=== PATIENT | male | born 1970 | race Caucasian/White ===

== ENCOUNTER 2020-11-14 08:31 | Observation (INO) | payer BC ==
--- NOTE | 2020-11-14 09:15 | ED ---
General Adult HPI - General Chief complaint: Syncope Stated complaint: syncope Time Seen by Provider: 11/14/20 08:36 Source: EMS Mode of arrival: EMS Limitations: no limitations - History of Present Illness Initial comments: Dictation was produced using [employer] dictation software. please excuse any grammatical, word or spelling errors. This patient was cared for during a federal and state declared state of emergency secondary to Covid 19 Chief Complaint: 50-year-old male presents after episode of syncope. History of Present Illness: She 50-year-old male he has no medical problems. Takes no medications on a regular basis. Patient states he was feeling fine last night. This morning he woke up to help his daughter who had a meeting. He check on the I after waking up at 745. He went upstairs plan HE IS ADVISED. HIS NEXT RECOLLECTION WAS WHEN EMS ARRIVED. Patient states he had a similar episode several months ago in [employer]. He did not seek medical attention at that time. States that after that episode he was diagnosed with influenza. Patient states he feels well at the moment except for some mild generalized body weakness. He has no other complaints at this time.Syncopal episode was unwitnessed however upon EMS arrival they did report that he seemed confused and possibly postictal. The ROS documented in this emergency department record has been reviewed and confirmed by me. Those systems with pertinent positive or negative responses have been documented in the HPI. All other systems are other negative and/or noncontributory. PHYSICAL EXAM: General Impression: Alert and oriented x3, not in acute distress HEENT: Normocephalic atraumatic, extra-ocular movements intact, pupils equal and reactive to light bilaterally, mucous membranes moist. Cardiovascular: Heart regular rate and rhythm Chest: Able to complete full sentences, no retractions, no tachypnea Abdomen: abdomen soft, non-tender, non-distended, no organomegaly Musculoskeletal: Pulses present and equal in all extremities, no peripheral edema Motor: no focal deficits noted Neurological: CN II-XII grossly intact, no focal motor or sensory deficits noted Skin: Intact with no visualized rashes Psych: Normal affect and mood ED course: 50-year-old male presents after syncopal episode. Signs upon arrival are within acceptable limits. There is some concern of seizure given that EMS reports postictal state. Laboratory evaluation obtained. Labs are unremarkable. Influenza RSV and SARS, coronavirus negative. Chest x-ray is nonacute. Computed tomography scan of brain is negative. Patient reevaluated bedside. Disposition options were discussed. is not bedside reports that patient did appear to be postictal after syncopal episode. There is concern of new onset seizure. Patient agreeable for admission with consultation to neurology. Case discussed Dr. Pak who is agreeable to patient's care. Neurology will be consulted. EKG interpretation: Ventricular rate 62, normal sinus rhythm,. Interval 132, QRS 90, QTc 444 no signs of prolonged QT, Brugada, HOCM, ARVD or WPW. No CT prolongation, no QTC prolongation, no ST or T-wave changes noted. s. Overall, this EKG is unremarkable Review of Systems ROS Statement: Those systems with pertinent positive or pertinent negative responses have been documented in the HPI. ROS Other: All systems not noted in ROS Statement are negative. Past Medical History Past Medical History: No Reported History Additional Past Medical History / Comment(s): Heart mumur at age 14 History of Any Multi-Drug Resistant Organisms: None Reported Past Surgical History: No Surgical Hx Reported Past Psychological History: No Psychological Hx Reported Smoking Status: Never smoker Past Alcohol Use History: Occasional Past Drug Use History: None Reported General Exam Limitations: no limitations Course Vital Signs 11/14/20 08:32 Temperature 97.7 F Pulse Rate 60 Respiratory 18 Rate Blood Pressure 139/86 O2 Sat by Pulse 100 Oximetry Medical Decision Making - Lab Data Result diagrams: 11/14/20 09:05 11/14/20 09:05 Lab Results 11/14/20 11/14/20 11/14/20 Range/Units 09:05 09:05 09:05 WBC 6.2 (3.8-10.6) k/uL RBC 4.95 (4.30-5.90) m/uL Hgb 14.7 (13.0-17.5) gm/dL Hct 44.7 (39.0-53.0) % MCV 90.2 (80.0-100.0) fL MCH 29.6 (25.0-35.0) pg MCHC 32.8 (31.0-37.0) g/dL RDW 13.0 (11.5-15.5) % Plt Count 186 (150-450) k/uL MPV 7.4 Neutrophils % 52 % Lymphocytes % 37 % Monocytes % 6 % Eosinophils % 2 % Basophils % 1 % Neutrophils # 3.2 (1.3-7.7) k/uL Lymphocytes # 2.3 (1.0-4.8) k/uL Monocytes # 0.4 (0-1.0) k/uL Eosinophils # 0.1 (0-0.7) k/uL Basophils # 0.0 (0-0.2) k/uL PT 10.1 (9.0-12.0) sec INR 1.0 (<1.2) APTT 21.7 L (22.0-30.0) sec Sodium 139 (137-145) mmol/L Potassium 4.2 (3.5-5.1) mmol/L Chloride 107 (98-107) mmol/L Carbon Dioxide 26 (22-30) mmol/L Anion Gap 6 mmol/L BUN 16 (9-20) mg/dL Creatinine 1.08 (0.66-1.25) mg/dL Est GFR (CKD-EPI)AfAm >90 (>60 ml/min/1.73 sqM) Est GFR (CKD-EPI)NonAf 79 (>60 ml/min/1.73 sqM) Glucose 104 H (74-99) mg/dL Calcium 8.4 (8.4-10.2) mg/dL Magnesium 1.9 (1.6-2.3) mg/dL Total Bilirubin 0.5 (0.2-1.3) mg/dL AST 21 (17-59) U/L ALT 28 (4-49) U/L Alkaline Phosphatase 39 (38-126) U/L Total Protein 6.4 (6.3-8.2) g/dL Albumin 4.0 (3.5-5.0) g/dL Influenza Type A (PCR) (Not Detectd) Influenza Type B (PCR) (Not Detectd) RSV (PCR) (Not Detectd) SARS-CoV-2 (PCR) (Not Detectd) 11/14/20 Range/Units 09:19 WBC (3.8-10.6) k/uL RBC (4.30-5.90) m/uL Hgb (13.0-17.5) gm/dL Hct (39.0-53.0) % MCV (80.0-100.0) fL MCH (25.0-35.0) pg MCHC (31.0-37.0) g/dL RDW (11.5-15.5) % Plt Count (150-450) k/uL MPV Neutrophils % % Lymphocytes % % Monocytes % % Eosinophils % % Basophils % % Neutrophils # (1.3-7.7) k/uL Lymphocytes # (1.0-4.8) k/uL Monocytes # (0-1.0) k/uL Eosinophils # (0-0.7) k/uL Basophils # (0-0.2) k/uL PT (9.0-12.0) sec INR (<1.2) APTT (22.0-30.0) sec Sodium (137-145) mmol/L Potassium (3.5-5.1) mmol/L Chloride (98-107) mmol/L Carbon Dioxide (22-30) mmol/L Anion Gap mmol/L BUN (9-20) mg/dL Creatinine (0.66-1.25) mg/dL Est GFR (CKD-EPI)AfAm (>60 ml/min/1.73 sqM) Est GFR (CKD-EPI)NonAf (>60 ml/min/1.73 sqM) Glucose (74-99) mg/dL Calcium (8.4-10.2) mg/dL Magnesium (1.6-2.3) mg/dL Total Bilirubin (0.2-1.3) mg/dL AST (17-59) U/L ALT (4-49) U/L Alkaline Phosphatase (38-126) U/L Total Protein (6.3-8.2) g/dL Albumin (3.5-5.0) g/dL Influenza Type A (PCR) Not Detected (Not Detectd) Influenza Type B (PCR) Not Detected (Not Detectd) RSV (PCR) Not Detected (Not Detectd) SARS-CoV-2 (PCR) Not Detected (Not Detectd) Disposition Clinical Impression: Seizure Disposition: ADMITTED IP TO THIS [facility] Condition: Fair Referrals: Jesus Puckett MD [Primary Care Provider] - 1-2 days Decision Time: 10:57
--- NOTE | 2020-11-14 09:18 | CT ---
EXAMINATION TYPE: CT brain wo con DATE OF EXAM: 11/14/2020 COMPARISON: 11/14/2020 HISTORY: 50-year-old male seizure TECHNIQUE: Examination was done in axial plane without intravenous contrast. Coronal and sagittal r econstructions performed. CT DLP: 1052.4 mGycm Automated exposure control for dose reduction was used. FINDINGS: There is no evidence of acute intracranial hemorrhage, acute ischemic changes, mass, mass-effect, or extra-axial fluid collection. There is no effacement of cerebral sulci or basal subarachnoid cister ns. There is no hydrocephalus. There is no midline shift. Palomo-white matter distinction is preserv ed. Paranasal sinuses and mastoid air cells well pneumatized. Orbits and globes are intact. IMPRESSION: No acute intracranial abnormality seen.
--- NOTE | 2020-11-14 09:30 | XR ---
EXAMINATION TYPE: XR chest 1V portable DATE OF EXAM: 11/14/2020 COMPARISON: NONE HISTORY: Trauma and pain TECHNIQUE: Single frontal view of the chest is obtained. FINDINGS: There is no focal air space opacity, pleural effusion, or pneumothorax seen. The cardiac silhouette size is within normal limits. Technique somewhat apical lordotic. There are overlying car diac leads. The osseous structures are intact. IMPRESSION: No acute process.
[2020-11-14 09:35] LABS: Basophils % (A) 1 %; Eosinophils # (A) 0.1 k/uL (0-0.7); Eosinophils % (A) 2 %; HCT 44.7 % (39.0-53.0); HGB 14.7 gm/dL (13.0-17.5); Lymphocytes # (A) 2.3 k/uL (1.0-4.8); Lymphocytes % (A) 37 %; MCH 29.6 pg (25.0-35.0); MCHC 32.8 g/dL (31.0-37.0); MCV 90.2 fL (80.0-100.0); Mean Platelet Volume 7.4; Monocytes # (A) 0.4 k/uL (0-1.0); Monocytes % (A) 6 %; Neutrophils # (A) 3.2 k/uL (1.3-7.7); Neutrophils % (A) 52 %; Platelet Count 186 k/uL (150-450); RBC 4.95 m/uL (4.30-5.90); WBC 6.2 k/uL (3.8-10.6)
[2020-11-14 09:49] LABS: ALT 28 U/L (4-49); AST 21 U/L (17-59); African American GFR (CKD) >90 (>60 ml/min/1.73 sqM); Alkaline Phosphatase 39 U/L (38-126); Anion Gap 6 mmol/L; Blood Urea Nitrogen 16 mg/dL (9-20); Calcium 8.4 mg/dL (8.4-10.2); Carbon Dioxide 26 mmol/L (22-30); Chloride 107 mmol/L (98-107); Glucose 104 mg/dL (74-99); Magnesium 1.9 mg/dL (1.6-2.3); Non-African American GFR(CKD) 79 (>60 ml/min/1.73 sqM); Potassium 4.2 mmol/L (3.5-5.1); Sodium 139 mmol/L (137-145); Total Bilirubin 0.5 mg/dL (0.2-1.3); Total Protein 6.4 g/dL (6.3-8.2)
[2020-11-14 10:05] LABS: Prothrombin Time 10.1 sec (9.0-12.0)
[2020-11-14 10:20] LABS: Partial Thromboplastin Time 21.7 sec (22.0-30.0)
[2020-11-14] MEDS ORDERED: NALOXONE 0.4 MG/ML 1 ML VIAL IV PRN (10:57)
[2020-11-14] MEDS: SODIUM CHLORIDE 0.9% 1,000 ML IV SCH (11:20)
--- NOTE | 2020-11-14 13:16 | P.CNNES ---
History of Present Illness Consult date: 11/14/20 Requesting physician: Jonnathan Torres Reason for Consult: Syncope. Rule out seizure History of Present Illness: This is a 50-year-old gentleman presents the emergency department on 11/14/2020 for an episode of syncope. Patient woke up today at 7:45 in the morning to help his daughter with the as a project. The patient is accompanied with his was at bedside that. When he woke up within 1-2 minutes he felt dizzy but upon asking more questions she said that it could've been dizziness it could've been lightheadedness she just felt off. So he left his daughter and that he went to the bathroom and in the bathroom he doesn't remember what happened after that that. His heard a thud and the she found him on the floor with the face facing upward. According to the that he did not have any jerking episode of any of the extremities. The patient started responding to his well within the 5 minutes. Patient denied any urinary or bowel incontinence or tongue soreness or tongue bite that. He stated that he did not have any chest pain prior to the episode or any diplopia or any visual disturbance. Denied any ringing in the ears or hearing loss. Denies any focal weakness or numbness. Denies any difficulty getting his words out or swallowing. She denied any fever, cough. The patient had the an episode the similar to this about 10 years ago while at [employer] and then all of a sudden the during the service and he leaned over and passed out. He was a valid at the hospital and he was told likely was due to influenza which he did have influenza the next Day upon check-in. He denies any seizure-like episodes as a child. Patient denied the tobacco use and he socially drinks alcohol. Patient stated that that for the last few months that after using the treadmill, he was told to lie on the floor. He said that that when he was sitting to lying he were to have this dizziness and episodes and he could not describe this dizziness episodes and he said that would last 2-3 seconds at. These episodes would happen once a week and again it's been going on for the last few months. Denies anything else associated with this such as the nausea, vomiting, diplopia, focal weakness or numbness. The patient is not on any medication. He doesn't have any medical history. The patient's history: He is a product of the normal term gestation, vaginal delivery, without any complication. There is no family history of seizures. Workup in the hospital consisted of: Initial vital signs is blood pressure of 139/86, heart rate of 60, respiratory of 18, temperature of 97.7 oral and pulse ox of 100% at room air. CT of the head is reported as no acute intracranial abnormality seen. EKG is reported as normal sinus rhythm. Normal EKG. White blood cell is 6.2 which is normal. Serum glucose is 104 which is slightly elevated but nothing concerning. Magnesium is 1.9 which is normal. Sodium is 139 which is normal. Patient influenza A/B PCR is negative. TheSARS COV-2 PCR is non-detected Review of Systems Review of system: The 12 point system was reviewed and apparent positive and negative per HPI. Past Medical History Past Medical History: No Reported History Additional Past Medical History / Comment(s): Heart mumur at age 14 History of Any Multi-Drug Resistant Organisms: None Reported Past Surgical History: No Surgical Hx Reported Past Psychological History: No Psychological Hx Reported Smoking Status: Never smoker Past Alcohol Use History: Occasional Past Drug Use History: None Reported Medications and Allergies Home Medications Medication Instructions Recorded Confirmed Type No Known Home Medications 11/14/20 11/14/20 History Allergies Allergy/AdvReac Type Severity Reaction Status Date / Time No Known Allergies Allergy Verified 11/14/20 11:16 Physical Examination - Vital Signs Vital Signs: Vital Signs Temp Pulse Resp BP Pulse Ox 11/14/20 11:18 98.2 F 78 18 134/89 100 11/14/20 08:32 97.7 F 60 18 139/86 100 Intake and Output 11/13/20 11/14/20 11/14/20 22:59 06:59 14:59 Other: Weight 95.254 kg GENERAL: The patient is lying in bed and is not in acute distress. HENT: bruise on left temporal lesion. CHEST: The heart rate is regular rate rhythm. No murmurs to auscultation. No carotid bruit bilaterally. LUNG: Clear to auscultation bilaterally no wheezing noted throughout. Not labored breathing. ABDOMEN/GI: Bowel sounds present in all 4 quadrants. No tenderness to palpation throughout. NEUROLOGICAL: Higher mental function: The patient is awake, alert, oriented to self, place and time. Patient is following commands. No aphasia and no neglect. Cranial nerves: The pupils are round, equal and reactive to light and accommodation. Visual renee are full to confrontation throughout. Extraocular movement is intact no nystagmus is noted. Facial sensation is normal to touch throughout. The facial strength is normal throughout. Hearing is normal bilaterally to hand rub. Tongue is midline and moved [id number] without any difficulty. No dysarthria is noted. Shoulder shrug is normal bilaterally. Motor: Gait is normal with normal arm swings. The strength is 5 over 5 throughout. Normal tone and bulk. Cerebellum: Normal finger to nose bilaterally. Sensation: Sensation is normal to touch throughout. Reflexes (right/left): 2+ throughout. Plantars are downgoing bilaterally. Results - Laboratory Findings CBC and BMP: 11/14/20 09:05 11/14/20 09:05 Abnormal Lab Findings: Abnormal Labs 11/14/20 11/14/20 09:05 09:05 APTT 21.7 L Glucose 104 H Assessment and Plan Assessment: This is a 50-year-old gentleman that presented to the hospital for a syncopal episode today. He stated that he felt dizzy lightheaded today upon waking up within 1-2 minutes of waking up. He had a prior syncopal episode that about 10 years ago and was told is due to influenza. He said for last few months about once a week he would have the dizziness lasting 2-3 seconds (after treadmill he will be doing well, then will lay on the ground but when going from sitting to lying position he would have dizziness episode). Syncopal episode (One syncopal episode today and one 10 years ago (that was told due to Influenza)). These simple episodes don't seem like a seizure. One of the differential is orthostatic hypotension. Rule out other cardiac in etiology. Plan: Ordered routine EEG. I will not start the patient on antiepileptic drug unless there is epileptiform discharges or seizure on the EEG. I ordered MRI of the brain without gadolinium. I ordered orthostatic vitals with a heart rate and the blood pressure. If those are normal would recommend that tilt table test. I recommend that 2-D echo. Cardiology is consulted. The plan is discussed with the patient and his was at bedside. Thank you for the consultation. Manuel Diaz M.D. Neuro-hospitalist Time with Patient: Greater than 30
--- NOTE | 2020-11-14 13:20 | P.HPIM ---
History of Present Illness H&P Date: 11/14/20 Chief Complaint: Syncopal episode This is a 50-year-old nonsmoker male who was seen evaluated examined in the emergency department patient came into the hospital with acute onset of syncopal episode, patient was talking to his daughter then he felt slightly nauseous dizzy, went to the washroom and fell down on the floor noted him to be foy slightly diaphoretic patient regains consciousness rods in the emergency department for further evaluation, no loss of bowel or bladder, denies any chest pain, denies any palpitation, patient has been admitted on monitored bed with cardiovascular and neurology consultation Review of Systems All systems: negative Past Medical History Past Medical History: No Reported History Additional Past Medical History / Comment(s): Heart mumur at age 14 History of Any Multi-Drug Resistant Organisms: None Reported Past Surgical History: No Surgical Hx Reported Past Psychological History: No Psychological Hx Reported Smoking Status: Never smoker Past Alcohol Use History: Occasional Past Drug Use History: None Reported Medications and Allergies Home Medications Medication Instructions Recorded Confirmed Type No Known Home Medications 11/14/20 11/14/20 History Allergies Allergy/AdvReac Type Severity Reaction Status Date / Time No Known Allergies Allergy Verified 11/14/20 11:16 Physical Exam Vitals: Vital Signs Temp Pulse Pulse Resp BP BP BP 11/14/20 13:12 78 128/89 132/94 11/14/20 11:18 98.2 F 78 18 134/89 11/14/20 08:32 97.7 F 60 18 139/86 BP Pulse Ox 11/14/20 13:12 127/70 11/14/20 11:18 100 11/14/20 08:32 100 Intake and Output 11/13/20 11/14/20 11/14/20 22:59 06:59 14:59 Other: Weight 95.254 kg - Constitutional General appearance: average body habitus, cooperative, disheveled - EENT Some bruising on the site of forehead and scalp Eyes: EOMI ENT: normal oropharynx Ears: bilateral: normal - Neck Carotids: bilateral: upstroke normal Thyroid: bilateral: normal size - Respiratory Respiratory: bilateral: CTA - Cardiovascular Rhythm: regular Heart sounds: normal: S1, S2 - Gastrointestinal General gastrointestinal: normal bowel sounds - Integumentary Integumentary: normal turgor - Neurologic Neurologic: CNII-XII intact - Musculoskeletal Musculoskeletal: gait normal, generalized weakness, strength equal bilaterally - Psychiatric Psychiatric: A&O x's 3, appropriate affect, intact judgment & insight Results CBC & Chem 7: 11/14/20 09:05 11/14/20 09:05 Labs: Abnormal Lab Results - Last 24 Hours (Table) 11/14/20 11/14/20 Range/Units 09:05 09:05 APTT 21.7 L (22.0-30.0) sec Glucose 104 H (74-99) mg/dL Assessment and Plan Assessment: Acute syncopal episode Vasovagal orthostatic hypotension Plan: Gentle rehydration Cardio neuro evaluation Further recommendations pending plan of care as per clinical response of the patient Time with Patient: Greater than 30
--- NOTE | 2020-11-14 17:55 | EEG ---
ELECTROENCEPHALOGRAM REPORT DATE OF SERVICE: 11/14/2020 CLINICAL HISTORY: This is a 50-year-old gentleman who had an episode of syncope today. The video EEG is obtained to evaluate for seizure and epileptiform activity. RELEVANT MEDICATION: The patient is not on any central active medication. EEG TYPE: A routine 21-channel EEG was performed with video using the 10/20 electrode placement system. DESCRIPTION: Wakefulness and drowsiness are obtained. During wakefulness there is a posterior- dominant rhythm of low to moderate voltage, reactive, well modulated of 8.5 to 9.5 hertz activity over bilateral hemispheres. During drowsiness there is slowing and attenuation of the background activity. There was no physiological stage II sleep seen over bilateral hemispheres. INTERICTAL AND ICTAL: None. ACTIVATION PROCEDURES: Photic stimulation did not evoke a posterior-driving response. Hyperventilation did not show any abnormality. CLINICAL INTERPRETATION: This is a normal routine EEG. There are no focal slowing, epileptiform discharges or seizure during the study. Clinical correlation is recommended. LORIE / CECILLEN: [id number] / MARCEL
--- NOTE | 2020-11-15 08:57 | MR ---
MR brain without contrast HISTORY: Syncope Multiplanar multisequence imaging obtained through the brain, correlation to CT brain 11/14/2020 There is no restricted diffusion. There is no hemorrhage or hydrocephalus. Normal vascular flow voids are noted. Cerebellopontine angles, corpus callosum, pituitary, cervical medullary junction are unre markable. Orbits show symmetric appearance. Paranasal sinuses are within normal limits. Brain signal is maintained. IMPRESSION: No acute abnormality. Normal brain MRI.
[2020-11-15 09:05] VITALS: RESP 18; TEMP 98.9
--- NOTE | 2020-11-15 09:35 | CONS ---
CONSULTATION CHIEF COMPLAINT: Syncope. 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 He states that he woke up from sleep, picked up Wi-Fi device for his daughter, ran upstairs, then ran downstairs when he felt dizzy and then suddenly lost consciousness. He did not have any injury. Did not have bladder or bowel incontinence. Did not have seizures. The syncope was witnessed. He states that he had an episode of syncope nearly 15 years ago. He does not have any other medical history. There is no history of hypertension, diabetes or dyslipidemia. MEDICATIONS: None. ALLERGIES: None. FAMILY HISTORY: Negative for premature coronary artery disease. SOCIAL HISTORY: Negative for current smoking, EtOH abuse, or drug abuse. He drinks alcohol occasionally was not quite sure if he had anything to drink the night before. REVIEW OF SYSTEMS: HEENT is unremarkable. CARDIAC: As described above. RESPIRATORY: Negative. GI: Negative. GENITOURINARY: Negative. ALLERGY/IMMUNOLOGY: Negative. SKIN: Negative. MUSCULOSKELETAL: Negative. ENDOCRINE: Negative. HEMATOLOGICAL: Negative. DERM: Negative. CONSTITUTIONAL: Negative. ONCOLOGICAL: Negative. TRAVELING INVENTORY ASSOCIATE: Significant for syncope. Rest of the system review is not relevant. PHYSICAL EXAMINATION: On exam, he is comfortable at rest. Vital signs are stable. There is no jugular venous distention. Carotid upstroke is normal. There is no bruit. Chest exam reveals good air entry bilaterally. Heart exam reveals first and second heart sounds. A short systolic murmur at the apex. ABDOMEN: Soft. Examination of extremities did not reveal any edema. Peripheral pulses are felt. TRAVELING INVENTORY ASSOCIATE exam did not reveal focal neurological deficits. His O2 saturation is normal at 98%. EKG appears normal. The patient did not have any orthostatic changes on his initial presentation, I am going to repeat them. Labs show a hemoglobin of 14.7, platelet count is 186. Potassium is 4.2. Creatinine is 1. AST, ALT are within normal limits. Coronavirus is negative. ASSESSMENT: Syncope probably vasovagal in origin. The patient had an MRI of the brain. I am waiting for the results. Neurology has already seen the patient and workup results are pending at this time. He had CT scan of the brain that was negative. I am going to obtain an echo. So far he has not had any documented cardiac arrhythmia. I advised him on lifestyle modification and asked him to increase his salt and fluid intake. If his echo is unremarkable, I will discharge him home and obtain an outpatient stress test. I will check one troponin and D-dimer. The patient states that he exercises regularly. He runs about 2 miles on treadmill and it takes him little over 21 minutes to do it and does not have any symptoms doing this. LORIE / DAVIAN: [id number] /
--- NOTE | 2020-11-15 10:45 | ECHOF ---
Referral Reason:syncope MEASUREMENTS -------- HEIGHT: 172.7 cm WEIGHT: 94.8 kg BP: RVIDd: 3.1 cm (< 3.3) IVSd: 1.0 cm (0.6 - 1.1) LVIDd: 5.3 cm (3.9 - 5.3) LVPWd: 1.1 cm (0.6 - 1.1) IVSs: 1.6 cm LVIDs: 3.2 cm LVPWs: 1.7 cm LA Diam: 4.1 cm (2.7 - 3.8) LAESV Index (A-L): 28.52 ml/m Ao Diam: 2.7 cm (2.0 - 3.7) AV Cusp: 1.6 cm (1.5 - 2.6) MV EXCURSION: 19.544 mm (> 18.000) MV EF SLOPE: 70 mm/s (70 - 150) EPSS: 1.3 cm MV E Joey: 0.63 m/s MV DecT: 215 ms MV A Joey: 0.74 m/s MV E/A Ratio: 0.84 RAP: 5.00 mmHg RVSP: 20.96 mmHg FINDINGS -------- Sinus rhythm. This was a technically good study. The left ventricular size is normal. Overall left ventricular systolic function is normal with, an EF between 55 - 60 %. No regional wall motion abnormalities were noted. The right ventricle is normal in size. LA is midly dilated 29-33ml/m2. The right atrial size is normal. The aortic valve is trileaflet, and appears structurally normal. No aortic stenosis or regurgitation. Mild mitral regurgitation is present. Mild tricuspid regurgitation present. Right ventricular systolic pressure is normal at < 35 mmHg. There is no pulmonic regurgitation present. The aortic root size is normal. There is no pericardial effusion. CONCLUSIONS -------- 1. The left ventricular size is normal. 2. Overall left ventricular systolic function is normal with, an EF between 55 - 60 %. 3. No regional wall motion abnormalities were noted. 4. The right ventricle is normal in size. 5. LA is midly dilated 29-33ml/m2. 6. The right atrial size is normal. 7. Mild mitral regurgitation is present. 8. Mild tricuspid regurgitation present. 9. There is no pulmonic regurgitation present. 10. The aortic root size is normal. 11. There is no pericardial effusion. [employer] ERECTOR HELPER: Gissell Meza RDCS
--- NOTE | 2020-11-15 11:45 | P.DS ---
Providers Date of admission: 11/14/20 10:57 Expected date of discharge: 11/15/20 Attending physician: Glenn Pak Consults: 11/14/20 10:58 Consult Physician Routine Consulting Provider: Manuel Diaz Consult Reason/Comments: new onset seizure Do you want consulting provider notified?: Yes 11/14/20 11:04 Consult Physician Routine Consulting Provider: Mauri Rajput Consult Reason/Comments: syncope Do you want consulting provider notified?: Yes Primary care physician: Jesus Puckett MD Hospital Course: 11/15/2020, patient seen eval examined during the rounds patient has been eval by cardiovascular services and neurology services, echocardiogram has been done with ejection fraction of 55-60% no acute abnormality has been identified, no new recommendation from cardiovascular services except life style modification, neurology also evaluated the patient and recommended MRI of the brain which is normal, CT angiogram of the brain has been done and results are pending, patient to be discharged home pending results of the CT angiogram available This is a 50-year-old nonsmoker male who was seen evaluated examined in the emergency department patient came into the hospital with acute onset of syncopal episode, patient was talking to his daughter then he felt slightly nauseous dizzy, went to the washroom and fell down on the floor noted him to be foy slightly diaphoretic patient regains consciousness rods in the emergency department for further evaluation, no loss of bowel or bladder, denies any chest pain, denies any palpitation, patient has been admitted on monitored bed with cardiovascular and neurology consultation Assessment: Acute syncopal episode Vasovagal orthostatic hypotension Patient Condition at Discharge: Stable Plan - Discharge Summary Discharge Rx Participant: Yes New Discharge Prescriptions: No Action No Known Home Medications Discharge Medication List No Known Home Medications 11/14/20 [History] Follow up Appointment(s)/Referral(s): Jesus Puckett MD [Primary Care Provider] - 1-2 days Discharge Disposition: HOME SELF-CARE
[2020-11-15] MEDS: SODIUM CHLORIDE 0.9% 1,000 ML IV SCH (11:50)
[2020-11-15 12:06] VITALS: BP 145/86; PULSE 63
--- NOTE | 2020-11-15 12:10 | CT ---
EXAMINATION TYPE: CT angio head neck DATE OF EXAM: 11/15/2020 COMPARISON: None NOW. 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 They have any definite rib or other significant lateral view reveals HISTORY: dizziness. Rule out posterior circulation insuffi CT DLP: 648.1 mGycm CONTRAST: Performed with IV Contrast, patient injected with 65 mL of Isovue 370. Combination Contrast CTA cervical carotids and [place] CTA cervical carotids with 3-D recons truction Contrast CTA of the cervical carotids was performed 3-D reconstruction imaging obtained at a separate workstation. Right carotid system: Mild plaque is seen of the right common carotid artery. There is mild plaque a lso noted at the carotid bulb and proximal ICA. No significant diameter reduction. ECA is patent. Right vertebral artery appears unremarkable. Left carotid system: Mild plaque is seen of the left common carotid artery. There is mild plaque als o noted at the carotid bulb and proximal ICA. No significant diameter reduction. ECA is patent. Lef t vertebral artery appears unremarkable. IMPRESSION: 1. No significant diameter reduction to account for the patient's symptoms. CTA [place] with 3-D reconstruction Contrast CTA of the [place] was performed 3-D reconstruction imaging obtained at a separate workstation. Vertebrobasilar system as well as intracranial portions of the internal carotid arteries and their ma slime tributaries are patent. I do not see evidence for sizable aneurysm or vascular malformation. Pl ease note MRI provides greater sensitivity and specificity. Visualized brain appears grossly unremar kable. IMPRESSION: 1. No significant abnormality.
--- NOTE | 2020-11-15 13:42 | P.PN ---
Subjective Progress Note Date: 11/15/20 She was seen at bedside and he stated that he has not had any further episodes a since being in the hospital. He denies of any weakness, numbness, visual disturbance or difficulty getting his words out. Denies of any dizziness or lightheadedness. He feels he is back to baseline now. Objective - Vital Signs Vital signs: Vital Signs Temp 98.9 F 11/15/20 12:00 Pulse 63 11/15/20 12:00 Resp 18 11/15/20 12:00 BP 145/86 11/15/20 12:00 Pulse Ox 97 11/15/20 12:00 Intake & Output 11/14/20 11/15/20 11/15/20 18:59 06:59 18:59 Intake Total 300 Output Total 0 Balance 300 0 Weight 95.254 kg 95.2 kg Intake: Oral 300 Output: Urine 0 Other: Voiding Method Urinal Urinal # Voids 0 1 - Exam GENERAL: The patient is lying in bed and is not in acute distress. NEUROLOGICAL: Higher mental function: The patient is awake, alert, oriented to self, place and time. Patient is following commands. No aphasia and no neglect. Cranial nerves: The pupils are round, equal and reactive to light and accommodation. Visual renee are full to confrontation throughout. Extraocular movement is intact no nystagmus is noted. Facial sensation is normal to touch throughout. The facial strength is normal throughout. Hearing is normal bi laterally to hand rub. Tongue is midline and moved [id number] without any difficulty. No dysarthria is noted. Shoulder shrug is normal bilaterally. Motor: Gait is normal with normal arm swings. The strength is 5 over 5 throughout. Normal tone and bulk. Cerebellum: Normal finger to nose bilaterally. Sensation: Sensation is normal to touch throughout. Reflexes (right/left): 2+ throughout. Plantars are downgoing bilaterally. - Labs CBC & Chem 7: 11/14/20 09:05 11/14/20 09:05 Assessment and Plan Assessment: This is a 50-year-old gentleman that presented to the hospital for a syncopal episode today. He stated that he felt dizzy lightheaded today upon waking up within 1-2 minutes of waking up. He had a prior syncopal episode that about 10 years ago and was told is due to influenza. He said for last few months about once a week he would have the dizziness lasting 2-3 seconds (after treadmill he will be doing well, then will lay on the ground but when going from sitting to lying position he would have dizziness episode). Syncopal episode (One syncopal episode today and one 10 years ago (that was told due to Influenza)). These simple episodes don't seem like a seizure. Unsure exact etiology. Plan: Routine EEG: Is normal. The there are no focal slowing, poor discharges or seizure on the EEG. MRI of the brain without gadolinium: Is reported as no acute abnormality. Normal brain MRI. CT angiography of the head and neck was reported as: No significant diameter reduction to account for the patient's symptoms. No significant abnormality of the the intracranial vessels. 2-D echo is reported as overall left ventricle systolic function is normal with ejection fraction 55-60%. Left atrium is mildly dilated. Orthostatic vitals was done: And the blood pressure supine is 127/70, sitting blood pressure is 120/89 and standing is 132/94. I have asked the nurse asked her orthostatic blood pressure with a heart rate. I wanted to get a tilt table test but the patient stated that the he doesn't want as an inpatient and that we'll consider as an outpatient. Cardiology is consulted. Neurology perspective since the seizure threshold was low I did not start the patient the on antiepileptic drug. I notified the patient the routine EEG to be normal and that if he continues to have these episodes I recommend long-term EEG or epilepsy monitoring unit. Also notified him that he needs tilt table test as an outpatient. He was notified the the follow-up with a neurologist and renovator machine operator regarding the symptoms within the 2 weeks. Manuel Diaz M.D. Neuro-hospitalist Time with Patient: Less than 30
== END 2020-11-15 14:02 | disposition home or self-care (01) ==
LOC: EC 08:31 → 3SCARD 10:57
PROVIDERS: ADMIT Internal Medicine Sleep Medicine; ATTEND Internal Medicine Sleep Medicine
DX: R55 Syncope and collapse (principal); I95.1 Orthostatic hypotension; M62.81 Muscle weakness (generalized); Z20.828 Contact with and (suspected) exposure to other viral communicable diseases
CPT/HCPCS: 99285; 36415; 95819; 93005; 93306; 85379; 80053; 83735; 84484; 85025; 85610; 85730; 87636; 71045; 70496; 70450; 70498; 70551; G0378 ×2; Q9967